=== PATIENT | female | born 1975 | race American Indian/Alaskan Native ===

== ENCOUNTER 2016-09-03 16:07 | Emergency (ER) | payer OTHER ==
[~2016-09-03] VITALS: Ht 175.3 cm; Wt 112.5 kg
[~2016-09-03 16:07] MED LIST: ALEVE220 M1 PO; BACTRIM DS TAB1 EACH PO; BENADRYL25 MG PO; IBUPROFEN600 MG PO; LORATADINE10 MG PO; PERCOCET 7.5-31 EACH PO
[2016-09-03] MEDS ORDERED: ALLEGRA ALLERGY60 MG PO (16:28)
[2016-09-03] MEDS ORDERED: NORCO 5-325 TA1 EACH PO (17:14)
== END 2016-09-03 17:30 | disposition home or self-care (01) ==
LOC: ED 16:07
DX: F07.81 Postconcussional syndrome (principal); V49.9XXA Car occupant (driver) (passenger) injured in unspecified traffic accident, initial encounter
CPT/HCPCS: 99283

== ENCOUNTER 2019-08-28 10:27 | Emergency (ER) | payer OTHER ==
[~2019-08-28] VITALS: Ht 172.7 cm; Wt 113.4 kg
[~2019-08-28 10:27] MED LIST changes: +ALLEGRA ALLERGY60 MG PO; +NORCO 5-325 TA1 EACH PO
[2019-08-28] MEDS ORDERED: NORCO 5-325 TA1 EACH PO (12:54)
== END 2019-08-28 13:07 | disposition home or self-care (01) ==
LOC: ED 10:27
DX: N20.0 Calculus of kidney (principal); Z90.49 Acquired absence of other specified parts of digestive tract
CPT/HCPCS: 74176; 81001; 99284-25

== ENCOUNTER 2021-11-30 08:21 | Day surgery (SDC) | payer OTHER ==
[~2021-11-30] VITALS: Ht 172.7 cm; Wt 110.0 kg
[~2021-11-30 08:21] MED LIST changes: +FERROUS SULFAT324 MG PO; +OSTERA TABLET1 EACH PO; +VIT C-ROSE HIP500 MG PO
--- NOTE | 2021-11-30 11:56 | NUR ---
11/30/21 1156 Elaine Cook 1146 PT ARRIVED IN PACU SLEEPY WITH NO C/O'S. 1155 RESTING. REU.
--- NOTE | 2021-11-30 12:30 | NUR ---
LE 1220: PT ARRIVES TO FROM PACU. SHE HAS ALREADY MET CRITERIA FOR VOIDING AND ORAL INTAKE. SHE HAS NO COMPALINTS OF PAIN. CALL LIGHT WITHIN REACH. NO ADDITIONAL NEEDS OR CONCERNS. BOYFRIEND IS AT THE BEDSIDE.
--- NOTE | 2021-11-30 13:52 | NUR ---
LE 1325 PATIENT ALERT AND ORIENTED. BREATHING EQUAL AND UNLABORED. OXYGEN SATURATIONS ABOVE 95% ON ROOM AIR. PATIENT DENIES ANY PAIN AND BEING NAUSEATED. PATIENT HAS MET DISCHARGE CRITERIA. DISCHARGE INSTRUCTIONS GIVEN AND UNDERSTOOD. NO QUESTIONS AT THIS TIME. PATIENT DRESSED SELF AND TOLERATED IT WELL. PATIENT WAS WHEELED OUT OF FACILITY TO PRIVATE AUTO WITH BOYFRIEND.
--- NOTE | 2021-12-02 09:07 | PATH ---
[facility] [address] [place], [place] [address] Signed SPECIMEN(S): A ENDOMETRIAL CURETTINGS SPECIMEN SOURCE: A. ENDOMETRIAL CURETTINGS CLINICAL HISTORY: Endometrial mass and abnormal uterine bleeding. Hysteroscopy with biopsy. FINAL PATHOLOGIC DIAGNOSIS: Endometrium, curettings: - Disordered proliferative endometrium. TWK:camary:C2NR MICROSCOPIC EXAMINATION: The specimen consists of endometrium that has a basic proliferative architecture. Many of the glands are large and irregularly shaped, characteristic of disordered proliferation. There is no evidence of hyperplasia or carcinoma. TWK GROSS DESCRIPTION: The specimen, labeled "OR, A," and designated on the requisition "EMC," is received in formalin and consists of multiple fragments of pink-boland soft tissue (2.0 x 1.0 x 0.2 cm in aggregate). The specimen is submitted entirely in cassette (A1). AC (under the direct supervision of a pathologist) The Gross Description was prepared using a voice recognition system. The report was reviewed for accuracy; however, sound-alike word errors, addition and/or deletions may occur. If there is any question about this report, please contact Client Services. PERFORMING LABORATORY: The technical component was performed by [email or web address], [address] [place] [id number] (CLIA# [id number]). The professional interpretation was performed by [email or web address], [facility], [address] [place] [address] (CLIA#: [id number]). Diagnostician: Genaro Brooks MD Pathologist Electronically Signed 12/02/2021 PATIENT NAME: AYALA DE OLIVEIRA PATHOLOGY DATE OF : 75 REPORT #: [id number] PHYSICIAN: ABBY PATHOLOGY PCP: [facility] REPORT IS CONFIDENTIAL AND NOT TO BE RELEASED WITHOUT AUTHORIZATION [address] [address] Signed Copies: ~ PATIENT NAME: AYALA DE OLIVEIRA PATHOLOGY DATE OF : 75 REPORT #: [id number] PHYSICIAN: ABBY PATHOLOGY PCP: [facility] REPORT IS CONFIDENTIAL AND NOT TO BE RELEASED WITHOUT AUTHORIZATION
--- NOTE | 2021-12-02 10:11 | OR ---
[facility] [address] [place], [place] [address] Signed DATE OF OPERATION: 11/30/2021 SURGEON: Claudio Lynne MD The patient of Dr. Lynne. PREOPERATIVE DIAGNOSIS: Abnormal uterine bleeding, endometrial mass. POSTOPERATIVE DIAGNOSIS: Abnormal uterine bleeding. PROCEDURE: Hysteroscopy with D and C. ANESTHESIA: General. ESTIMATED BLOOD LOSS: 5 mL. COMPLICATIONS: None. DRAINS: None. FINDINGS: Cervix, thick, closed. Uterus normal size and shape. Uterine cavity normal size and shape. There was some moderate amount of normal-appearing tissue throughout the cavity. No polyps, no masses and no fibroids noted. Both ostia could be seen and appeared normal DESCRIPTION OF PROCEDURE: The patient was brought to the operating room, placed in supine position. After adequate general anesthesia was obtained, was placed in dorsal lithotomy position, prepped and draped in usual sterile fashion. Weighted speculum was placed in the vagina and the anterior lip of the cervix grasped with an Allis clamp. Cervix was serially dilated up to a #7 curette. The hysteroscope was then placed in the endocervical canal and entered uterine cavity under direct visualization. Sterile saline was used as Electronically Signed By: CLAUDIO LYNNE MD 12/02/21 1011 PATIENT NAME: AYALA DE OLIVEIRA OPERATIVE REPORT DATE OF : 75 REPORT #: [id number] PHYSICIAN: CLAUDIO LYNNE MD PCP: [facility] REPORT IS CONFIDENTIAL AND NOT TO BE RELEASED WITHOUT AUTHORIZATION [facility] [address] [facility] [place], [place] [address] Signed distending medium. The above findings were noted. The MyoSure Lite was then inserted through the hysteroscope and the entire cavity biopsied in a 360 degree fashion both at the fundus and also the lower segment. No polyps were seen, though the entire area was biopsied. Good hemostasis was noted, so the hysteroscope was removed. All instruments removed from the vagina and cervix. The cervix noted to have good hemostasis. The patient tolerated the procedure well, went to recovery room in good condition. The sponge and instrument counts were correct at the end of the procedure. The curettings were sent to Pathology for identification. Claudio Lynne MD MJB/MODL /[id number] cc: [facility] PCP Copies: [facility] ~ Electronically Signed By: CLAUDIO LYNNE MD 12/02/21 1011 PATIENT NAME: AYALA DE OLIVEIRA OPERATIVE REPORT DATE OF : 75 REPORT #: [id number] PHYSICIAN: CLAUDIO LYNNE MD PCP: [facility] REPORT IS CONFIDENTIAL AND NOT TO BE RELEASED WITHOUT AUTHORIZATION
== END 2021-11-30 13:25 | disposition home or self-care (01) ==
LOC: DS 08:21
PROVIDERS: ATTEND General Practice
PROC: 0UDB8ZX Extraction of Endometrium, Via Natural or Artificial Opening Endoscopic, Diagnostic (ICD-10-PCS; principal; 2021-11-30 10:15)
DX: N93.9 Abnormal uterine and vaginal bleeding, unspecified (principal); N94.89 Other specified conditions associated with female genital organs and menstrual cycle
CPT/HCPCS: 88305; J0131; J1100; J1885; J2001; J2405; J2704; J3010; J7121

== ENCOUNTER 2024-05-07 19:21 | Emergency (ER) | payer OTHER ==
[~2024-05-07] VITALS: Ht 172.7 cm; Wt 123.0 kg
[2024-05-07] MEDS ORDERED: B-121000 MC2 PO (19:35)
[2024-05-07] MEDS ORDERED: LISINOPRIL5 MG PO (19:35)
[2024-05-07] MEDS ORDERED: METFORMIN HCL500 MG PO (19:35)
[2024-05-07] MEDS ORDERED: FEROSUL325 MG PO (19:35)
[2024-05-07] MEDS ORDERED: LORATADINE10 MG PO (19:35)
[2024-05-07] MEDS ORDERED: HYDROCODONE BIT/ACETAMINOPHEN 5/325 MG 1 TAB HOME.PACK PO ONE (20:15)
[2024-05-07] MEDS ORDERED: HYDROCODON-ACE1 EA10 PO (20:18)
[2024-05-07 20:28] VITALS: BP 157/85
[2024-05-10] MEDS ORDERED: VITAMIN D350 MCG PO (11:31)
== END 2024-05-07 20:28 | disposition home or self-care (01) ==
LOC: ED 19:21
DX: S82.431A Displaced oblique fracture of shaft of right fibula, initial encounter for closed fracture (principal); I10 Essential (primary) hypertension; E11.9 Type 2 diabetes mellitus without complications; Z91.048 Other nonmedicinal substance allergy status; Z79.899 Other long term (current) drug therapy; Z79.84 Long term (current) use of oral hypoglycemic drugs; X50.1XXA Overexertion from prolonged static or awkward postures, initial encounter
CPT/HCPCS: 73610; 99283; A9270

== ENCOUNTER 2024-05-13 09:00 | Day surgery (SDC) | payer OTHER ==
[2024-05-09 11:08] VITALS: BP 141/89
[~2024-05-13] VITALS: Ht 172.7 cm; Wt 123.2 kg
[~2024-05-13 09:00] MED LIST changes: +B-121000 MC2 PO; +CEFAZOLIN SODIUM 3 GM/30 ML SYR IV SCH; +FEROSUL325 MG PO; +GABAPENTIN 600 MG TAB PO SCH; +HYDROCODON-ACE1 EA10 PO; +IBLOOD GLUCOSE TEST STRIP 1 EA TEST VI PRN; +LACTATED RINGER'S 1,000 ML IV SCH; +LIDOCAINE HCL 1% 5 ML SDV INJ ONE; +LISINOPRIL5 MG PO; +METFORMIN HCL500 MG PO; +SEVOFLURANE 250 ML BTL INH ONE; +TRANEXAMIC ACID IN NACL,ISO-OS 1,000 MG/100 ML PIGGYBACK IV SCH; +VITAMIN D350 MCG PO
[2024-05-13 09:19] VITALS: BP 139/88
[2024-05-13] MEDS ORDERED: ASPIRIN REGIMEN81 MG PO (09:23)
[2024-05-13] MEDS ORDERED: DEXAMETHASONE SOD PHOS 4 MG/ML VIAL ONE (10:47)
[2024-05-13] MEDS ORDERED: propofoL 200 MG/20 ML VIAL ONE (10:47)
[2024-05-13] MEDS ORDERED: MIDAZOLAM HCL 2 MG/2 ML VIAL ONE (10:48)
[2024-05-13] MEDS ORDERED: LIDOCAINE HCL 2% 5 ML SDV ONE (10:48)
[2024-05-13] MEDS ORDERED: Ropivacaine HCl 0.5% 30 ML VIAL ONE (10:48)
[2024-05-13] MEDS ORDERED: SODIUM CHLORIDE 0.9% 40 ML IV ONE (10:48)
[2024-05-13] MEDS ORDERED: fentaNYL citrate 100 MCG/2 ML VIAL ONE (11:05)
[2024-05-13] MEDS ORDERED: KETOROLAC TROMETHAMINE 15 MG/ML VIAL IV PRN (11:45)
[2024-05-13] MEDS ORDERED: HYDROCODONE/ACETA 7.5/325 TAB PO PRN (11:45)
[2024-05-13] MEDS ORDERED: ACETAMINOPHEN 1,000 MG/100 ML VIAL ONE (12:08)
[2024-05-13] MEDS ORDERED: ondansetron HCL 4 MG/2 ML VIAL ONE (12:40)
[2024-05-13] MEDS ORDERED: KETOROLAC TROMETHAMINE 30 MG/ML VIAL ONE (12:40)
[2024-05-13] MEDS ORDERED: ASPIRIN325 MG PO (12:56)
[2024-05-13] MEDS ORDERED: HYDROCODON-ACE1 EA11 PO (12:56)
--- NOTE | 2024-05-13 13:06 | NUR ---
05/13/24 1306 Barbara Delaney PATIENT FOLLOWS INSTRUCTIONS TO LIFT HEAD OFF PILLOW. OXYGEN MASK IS REMOVED AND SURGICAL BONNET IS REMOVED.
[2024-05-13] MEDS ORDERED: fentaNYL citrate 50 MCG/ML SDV IV PRN (13:15)
[2024-05-13] MEDS ORDERED: ondansetron HCL 4 MG/2 ML VIAL IV PRN (13:15)
[2024-05-13] MEDS ORDERED: NALOXONE HCL 0.4 MG SYR IV PRN (13:15)
[2024-05-13] MEDS ORDERED: IBLOOD GLUCOSE TEST STRIP 1 EA TEST VI PRN (13:15)
--- NOTE | 2024-05-13 13:43 | NUR ---
PT ARRIVES TO DS FROM PACU VIA STRETCHER. PT REPORTS PAIN IS 6/10 AT THIS TIME. PT STATES PAIN IS PICKETT LEVEL ON LATERAL SIDE OF LEG. PT REPORTS LFT ANKLE IS NUMB AND ABLE TO SLIGHTLY WIGGLE TOES. PT TOLERATES PUDDING WITHOUT ONSET OF NAUSEA AND SIPS OF ICE WATER. ICE PACK REPOSITIONED TO INSIDE OF BOOT. CALL LIGHT WITHIN REACH, SIGNIFICANT OTHER AT BEDSIDE. PT REPORTS NO FURTHER NEEDS OR QUESTIONS AT THIS TIME.
--- NOTE | 2024-05-13 13:49 | NUR ---
PUDDING AND ICED WATER GIVEN. PATIENT IS EATING AND DRINKING AND TOLERATING THAT WELL. CALL LIGHT WITHIN REACH.
[2024-05-13 14:01] VITALS: BP 136/65
--- NOTE | 2024-05-13 14:30 | NUR ---
IN PT ROOM FOR PAIN ASSESSMENT. PT RESTING W/EYES CLOSED. RESPIRATIONS EVEN AND UNLABORED AT THIS TIME. CALL LIGHT WITHIN REACH, SIGNIFICANT OTHER AT BEDSIDE.
--- NOTE | 2024-05-13 14:45 | NUR ---
IN PT ROOM FOR PAIN ASSESSMENT. PT REPORTS PAIN IS TOLERABLE AND AT 3/10. PT STATES URGE TO URINE VOID AT THIS TIME. PT TO BEDSIDE COMMODE VIA STAND PIVOT AND 1PA FROM THIS RN. PT REPORTS NO DIZZINESS OR NAUSEA W/MOVEMENT. PT URINE VOIDS 650 ML OF CLEAR/YELLOW URINE. PT BACK TO SITTING AT EDGE OF BED AND GETTING DRESSED AT THIS TIME W/SO ASSISTANCE. CALL LIGHT WITHIN REACH.
[2024-05-13 14:52] VITALS: BP 110/69
--- NOTE | 2024-05-13 15:10 | NUR ---
IN PT ROOM FOR DC EDUCATION. PT AND PT SO STATES VERBAL UNDERSTANDING TO DC EDUCATION AT THIS TIME. PT STATES NO FURTHER QUESTIONS. IV DC'ED, WNL. PT OFF OF UNIT VIA WC TO PASSENGER SIDE OF VEHICLE FOR STAND/PIVOT TO SEATED POSITION. ALL BELONGINGS IN PT POSSESSION AT THIS TIME. FRESH ICE PACK PROVIDED. PT STATES NO FURTHER NEEDS AT THIS TIME.
[2024-05-13] MEDS ORDERED: ASPIRIN 325 MG TAB PO SCH (21:00)
[2024-05-14] MEDS ORDERED: DULOXETINE HCL 30 MG CAP PO SCH (09:00)
--- NOTE | 2024-05-15 10:05 | OR ---
[facility] [address] [facility] [place], [place] [address] Signed DATE OF OPERATION: 05/13/2024 SURGEON: Zainab Carney MD PREOPERATIVE DIAGNOSIS: Right lateral malleolus fracture, displaced, unstable. POSTOPERATIVE DIAGNOSIS: Right lateral malleolus fracture, displaced, unstable. PROCEDURE PERFORMED: Open reduction and internal fixation, right lateral malleolus. SERVER: None. ANESTHESIA: General. TOURNIQUET TIME: 25 minutes. IMPLANTS: Eight hole 1/3rd tubular plate with eight screws. BRIEF HISTORY: Jean-Pierre is a 49-year-old female with displaced ankle fracture after rolling her foot. Risks, benefits, and alternatives of surgery were discussed with her and she elected to proceed. DESCRIPTION OF PROCEDURE: Once consent was obtained, she was taken to the operating room. After adequate anesthesia, she was placed on the OR table. She was placed in well-padded proximal thigh tourniquet and placed on a hip bump. The leg was then prepped and draped in a standard sterile fashion, exsanguinated using Esmarch bandage. Tourniquet inflated to 250 mmHg. A standard lateral approach to the distal fibula was undertaken, is carried through the skin and subcutaneous tissue. The fracture was readily identified. It was distracted, cleared of soft tissue and reduced and held with a pointed clamp. Once this was completed and checked using image intensifier, found to be satisfactory. We then placed the eight hole plate along the lateral side of the fibula as a neutralization Electronically Signed By: ZAINAB CARNEY MD 05/15/24 1005 PATIENT NAME: JEAN-PIERRE DE OLIVEIRA OPERATIVE REPORT DATE OF : 75 REPORT #: [id number] PHYSICIAN: ZAINAB CARNEY MD PCP: [facility] PAPER REEL OPERATOR-BC REPORT IS CONFIDENTIAL AND NOT TO BE RELEASED WITHOUT AUTHORIZATION [facility] [address] [place], [place] [address] Signed plate. It was then held in position with a single screw in the proximal end. Once this was properly aligned, the reduction was checked once again, found to be good. A standard AO lag screw was placed from anterior to posterior with moderate purchase in the bone. The remaining screw holes were drilled and appropriate length screws were placed in the plate. The two distal screws were filled using 4-0 cancellous screws. Her bone quality was fairly poor. The clamp was removed. Final radiographs showed good reduction, plate placement and screw lengths. The wound was then copiously irrigated with normal saline. The periosteum was closed over the plate using 3-0 Monocryl, subcutaneous tissue with 3-0 Monocryl and the skin with birgit. Wound was dressed with Allevyn and an Raymundo wrap. She was placed into her fracture boot, taken to the recovery room in satisfactory condition. All sponge, needle, and instrument counts were correct. Zainab Carney MD BA/NORBERT /[id number] Copies: ~ Electronically Signed By: ZAINAB CARNEY MD 05/15/24 1005 PATIENT NAME: CLAUDIO ESQUIVELJEAN-PIERRE IBANEZ OPERATIVE REPORT DATE OF : 75 REPORT #: [id number] PHYSICIAN: ZAINAB CARNEY MD PCP: [facility] PAPER REEL OPERATOR-BC REPORT IS CONFIDENTIAL AND NOT TO BE RELEASED WITHOUT AUTHORIZATION
== END 2024-05-13 15:15 | disposition home or self-care (01) ==
LOC: DS 09:00
PROVIDERS: ATTEND Specialist
PROC: 0QSK04Z Reposition Left Fibula with Internal Fixation Device, Open Approach (ICD-10-PCS; principal; 2024-05-13 11:30)
DX: S82.61XA Displaced fracture of lateral malleolus of right fibula, initial encounter for closed fracture (principal); I10 Essential (primary) hypertension; Z79.84 Long term (current) use of oral hypoglycemic drugs; Z79.899 Other long term (current) drug therapy; W18.43XA Slipping, tripping and stumbling without falling due to stepping from one level to another, initial encounter
CPT/HCPCS: 01480; 64447; 73600; A9270; C1713; J0131; J0690; J1100; J1885; J2003; J2250; J2405; J2704; J2795; J3010; J7121

== ENCOUNTER 2024-06-10 08:49 | Emergency (ER) | payer OTHER ==
[~2024-06-10] VITALS: Ht 172.7 cm; Wt 126.7 kg
[~2024-06-10 08:49] MED LIST changes: +ASPIRIN REGIMEN81 MG PO; +ASPIRIN325 MG PO; -CEFAZOLIN SODIUM 3 GM/30 ML SYR IV SCH; -GABAPENTIN 600 MG TAB PO SCH; +HYDROCODON-ACE1 EA11 PO; -IBLOOD GLUCOSE TEST STRIP 1 EA TEST VI PRN; -LACTATED RINGER'S 1,000 ML IV SCH; -LIDOCAINE HCL 1% 5 ML SDV INJ ONE; -SEVOFLURANE 250 ML BTL INH ONE; -TRANEXAMIC ACID IN NACL,ISO-OS 1,000 MG/100 ML PIGGYBACK IV SCH
[2024-06-10 10:04] VITALS: BP 128/77
== END 2024-06-10 10:04 | disposition home or self-care (01) ==
LOC: ED 08:49
DX: Z48.01 Encounter for change or removal of surgical wound dressing (principal); I10 Essential (primary) hypertension; E11.9 Type 2 diabetes mellitus without complications; Z91.09 Other allergy status, other than to drugs and biological substances; Z79.82 Long term (current) use of aspirin; Z79.84 Long term (current) use of oral hypoglycemic drugs
CPT/HCPCS: 99282

== ENCOUNTER 2024-11-06 09:42 | Day surgery (SDC) | payer OTHER ==
[~2024-11-06] VITALS: Ht 172.7 cm; Wt 124.0 kg
[~2024-11-06 09:42] MED LIST changes: +IBLOOD GLUCOSE TEST STRIP 1 EA TEST VI PRN; +LACTATED RINGER'S 1,000 ML IV SCH; +LIDOCAINE HCL 1% 5 ML SDV INJ ONE; +PREDNISONE20 MG PO
[2024-11-06 09:54] VITALS: BP 122/73
[2024-11-06] MEDS ORDERED: VOLTAREN ARTHRI20 GM TP (09:57)
[2024-11-06] MEDS ORDERED: LIDOCAINE HCL 2% 5 ML SDV ONE (10:39)
--- NOTE | 2024-11-06 11:47 | NUR ---
11/06/24 Phillip7 Ophelia Pereira 1136- PT PRESENTS TO PACU, LEFT LATERAL POSITION, NON REACTIVE TO STIMULUS. O2 AT 6L PER MASK, BREATHING EVEN AND NON LABORED. LR INFUSING TO RH IV. ABD SOFT, NON DISTENDED. ALL MONITORS IN PLACE. 1140- PT REACTIVE TO STIMULUS AND REACHES TO SCRATCH FACE UNDER MASK, NO VERBAL RESPONSE AND KEEPS EYES CLOSED. PT CONTINUES TO REST. WILL CONTINUE TO MONITOR.
[2024-11-06] MEDS ORDERED: GLYCOPYRROLATE 1 MG/5 ML MDV ONE (11:58)
[2024-11-06 12:10] VITALS: BP 112/86
--- NOTE | 2024-11-20 13:20 | PATH ---
[facility] [address] [place], [place] [address] Signed THIS IS AN AMENDED REPORT SPECIMEN(S): A COLON POLYP AT 15 CM SPECIMEN SOURCE: A. COLON POLYP AT 15 CM CLINICAL HISTORY: Colon screening, sigmoid diverticuli REASON FOR AMENDMENT: This report is amended to change the diagnosis from "Prominent intramucosal lymphoid aggregate" to "Prominent benign intramucosal lymphoid aggregate." The changes are underlined.� The remainder of the report is unchanged.� 11/20/24 FINAL PATHOLOGIC DIAGNOSIS: Colon at 15 cm, polypectomy: - Prominent benign intramucosal lymphoid aggregate. DWS:clv MICROSCOPIC EXAMINATION: Histologic sections of all submitted blocks are examined by light microscopy. These findings, together with the gross examination, support the pathologic diagnosis. GROSS DESCRIPTION: The specimen, labeled and designated "Red Bird, colon polyp at 15 cm," is received in formalin and consists of two boland soft tissue fragments, ranging from 0.2-0.3 cm. Entirely submitted in (A1). VB (under the direct supervision of a pathologist) The Gross Description was prepared using a voice recognition system. The report was reviewed for accuracy; however, sound-alike word errors, addition and/or deletions may occur. If there is any question about this report, please contact Client Services. PERFORMING LABORATORY: Technical component was performed by [facility], [address] [place] [id number] (CLIA# [id number]). Professional interpretation was performed by [facility], [address] [place] [id number] (CLIA#: [id number]). PATIENT NAME: AYALA DE OLIVEIRA PATHOLOGY DATE OF : 75 REPORT #: [id number] PHYSICIAN: ABBY PATHOLOGY PCP: [facility] MIRAMONT[facility] REPORT IS CONFIDENTIAL AND NOT TO BE RELEASED WITHOUT AUTHORIZATION [address] [place], [place] [address] Signed Diagnostician: Wilmar Del Rio MD Pathologist Electronically Signed 11/20/2024 Copies: ~ PATIENT NAME: AYALA DE OLIVEIRA PATHOLOGY DATE OF : 75 REPORT #: [id number] PHYSICIAN: ABBY PATHOLOGY PCP: [facility] MIRAMONTES REPORT IS CONFIDENTIAL AND NOT TO BE RELEASED WITHOUT AUTHORIZATION
== END 2024-11-06 12:20 | disposition home or self-care (01) ==
LOC: DS 09:42 → OPS 09:42 → DS 11:10 → OPS 11:10 → DS 12:30
PROVIDERS: ATTEND Surgery
PROC: 0DBP8ZX Excision of Rectum, Via Natural or Artificial Opening Endoscopic, Diagnostic (ICD-10-PCS; principal; 2024-11-06 10:30)
DX: Z12.11 Encounter for screening for malignant neoplasm of colon (principal); K63.5 Polyp of colon; K57.30 Diverticulosis of large intestine without perforation or abscess without bleeding; K64.8 Other hemorrhoids; E11.9 Type 2 diabetes mellitus without complications; I10 Essential (primary) hypertension; Z87.891 Personal history of nicotine dependence; Z79.84 Long term (current) use of oral hypoglycemic drugs; Z88.8 Allergy status to other drugs, medicaments and biological substances; Z91.09 Other allergy status, other than to drugs and biological substances
CPT/HCPCS: 00812; 88305; J2003; J2704